=== PATIENT | female | born 1960 | race American Indian/Alaskan Native ===

== ENCOUNTER 2017-04-26 10:53 | Outpatient (CLI) | payer BC ==
--- NOTE | 2017-04-26 18:31 | XRay Report ---
FINAL REPORT EXAM: XR HIP 2-3V RT HISTORY: HIP PAIN TECHNIQUE: Right hip and AP pelvis PRIORS: None. FINDINGS: No fracture identified. No dislocation seen. Femoral head maintains a normal contour. Joint spaces within normal limits. Adjacent bony pelvis is unremarkable IMPRESSION: Negative hip series
--- NOTE | 2017-04-26 18:37 | XRay Report ---
FINAL REPORT EXAM: XR SPINE CERVICAL 4-5V HISTORY: NECK PAIN TECHNIQUE: Cervical spine five views PRIORS: None. FINDINGS: There is fusion of vertebral bodies C5-C6. Degenerative disc changes present with disc space narrowing and marginal osteophyte C4-C5-C6-C7 and C7-T1. There is some facet joint arthropathy with left neural foraminal narrowing C3-C4 C6-C7 and neural foraminal narrowing on the right at C6-C7-C7-T1. No acute fracture or malalignment identified. Prevertebral soft tissues are unremarkable. Spinous processes are intact. 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
== END 2017-04-26 10:54 | disposition home or self-care (01) ==
LOC: XRAY 10:53
PROVIDERS: ATTEND Internal Medicine
DX: M48.02 Spinal stenosis, cervical region (principal); M47.892 Other spondylosis, cervical region; M12.88 Other specific arthropathies, not elsewhere classified, other specified site; M25.551 Pain in right hip
CPT/HCPCS: 72050